=== PATIENT | female | born 1965 | race Caucasian/White ===

== ENCOUNTER 2021-09-24 11:09 | Emergency (ER) | payer BC ==
[~2021-09-24] VITALS: Ht 154.9 cm; Wt 99.8 kg
--- NOTE | 2021-09-24 11:18 | NUR ---
TO ER BED 4, BIB SELF C/O RLQ ABDOMINAL PAIN STARTED AM THIS MORNING. AAOX3, BREATHING EVEN AND NON LABORED, CONNECTED TO MONITOR, AWATING MD ORDERS
[2021-09-24] MEDS ORDERED: IV NS 0.9% 1,000 ML BAG IV ONE (11:30)
[2021-09-24 11:52] LABS: BASOPHILS # (AUTO) 0.1 K/uL (0.0-0.2); EOSINOPHILS % (AUTO) 0.2 % (0.0-6.0); HEMATOCRIT 38 % (33-45); HEMOGLOBIN 12.6 g/dL (11.5-14.8); LYMPHOCYTES # (AUTO) 0.9 K/uL (0.8-4.8); LYMPHOCYTES % (AUTO) 7.7 % (20.0-44.0); MEAN CORPUSCULAR HGB CONC 33 g/dl (31.0-36.0); MEAN CORPUSCULAR VOLUME 84 fL (82-100); MONOCYTES # (AUTO) 0.5 K/uL (0.1-1.30); MONOCYTES % (AUTO) 4.1 % (2.0-12.0); NEUTROPHILS # (AUTO) 10.3 K/uL (1.8-8.9); PLATELET COUNT (AUTO) 245 K/uL (150-450); RED BLOOD CELL COUNT(AUTO) 4.56 MIL/uL (4.0-5.2); WHITE BLOOD COUNT (AUTO) 11.8 K/uL (4.3-11.0)
--- NOTE | 2021-09-24 11:52 | NUR ---
BLOOD SPECIMEN WAS COLLECTED AND SENT TO THE LAB
[2021-09-24 11:59] LABS: POTASSIUM 4.4 mmol/L (3.5-5.1)
[2021-09-24 12:05] LABS: ALBUMIN 3.9 g/dL (3.4-5.0); BILIRUBIN,DIRECT 0.1 mg/dL (0.0-0.2); BILIRUBIN,TOTAL 0.4 mg/dL (0.2-1.0)
[2021-09-24 12:06] LABS: BILIRUBIN,URINE Negative (NEGATIVE); COLOR,URINE YELLOW (YELLOW); LEUKOCYTE ESTERASE ,URINE Negative (NEGATIVE); NITRITE, URINE Negative (NEGATIVE); PH,URINE 5.5 (5.0-8.0); PROTEIN,URINE Negative (NEGATIVE); UGLUCOSE Negative (NEGATIVE); UROBILINOGEN,URINE 0.2 EU/dL (0.2)
[2021-09-24 12:07] LABS: BACTERIA,URINE Few /HPF (None Seen); SQUAMOUS EPITHELIAL CELL,UR Few /HPF (None Seen); WBC,URINE 0-2 /HPF (0-3)
[2021-09-24] MEDS ORDERED: IOHEXOL-300 100 ML VIAL IV ONE (12:16)
[2021-09-24] MEDS ORDERED: IV NS 0.9% 250 ML IV ONE (12:16)
[2021-09-24] MEDS ORDERED: KETOROLAC TROMETHAMINE INJ 30 MG/ML VIAL ONE (12:43)
[2021-09-24] MEDS ORDERED: ONDA4TAB5 PO (12:48)
[2021-09-24] MEDS ORDERED: TAMS-12 PO (12:48)
[2021-09-24] MEDS ORDERED: KETOROLAC TROMETHAMINE INJ 30 MG/ML VIAL IV ONE (13:00)
--- NOTE | 2021-09-24 13:00 | NUR ---
IV removed. Catheter intact and site benign. Pressure and 4x4 applied to site. No bleeding noted.Patient discharged to home in stable condition. Written and verbal after care instructions given. Patient verbalizes understanding of instruction.
[2021-09-24 13:04] VITALS: BP 136/70
== END 2021-09-24 13:04 | disposition home or self-care (01) ==
LOC: ER 11:14
DX: N13.2 Hydronephrosis with renal and ureteral calculous obstruction (principal)
CPT/HCPCS: 36415; 74177; 80048; 80076; 81001; 83690; 85025; 96361; 96374; 99285; J1885; J7030; J7050; Q9967